=== PATIENT | female | born 1990 | race Caucasian/White ===

== ENCOUNTER 2023-08-19 11:07 | Emergency (ER) | payer SELFPAY ==
[~2023-08-19] VITALS: Ht 162.6 cm; Wt 55.0 kg
[2023-08-19 11:16] VITALS: BP 120/76; PULSE 83; RESP 16; TEMP 98.8; O2SAT 100
== END 2023-08-19 13:25 | disposition left against medical advice (07) ==
LOC: ER 11:07
DX: Z53.21 Procedure and treatment not carried out due to patient leaving prior to being seen by health care provider (principal)
CPT/HCPCS: 99281